=== PATIENT | male | born 1985 | race Two or more races ===

== ENCOUNTER 2024-09-11 22:49 | Emergency (ER) | payer MEDICAID, OTHER ==
[~2024-09-11] VITALS: Ht 175.3 cm; Wt 89.8 kg
--- NOTE | 2024-09-11 23:12 | ED.PDOC ---
GI ASSESSMENT HPI Comments 39-year-old Male who came to ER for rectal pain. Patient states he has been constipated for the past few days. Has been taking a laxative, but offered no relief. Patient decided to do manual rectal extraction earlier, however he started having rectal bleeding which prompted him to come to the ER patient does not currently have an active rectal bleed. Vital signs were stable on arrival. Chief Complaint: Rectal pain Time Seen by MD: 23:11 Reviewed Notes: Nurses Notes Allergies: Coded Allergies: NO KNOWN ALLERGIES (Unverified , 09/11/24) Information Source: Patient Mode of Arrival: Ambulatory Timing: Days Duration: Since onset Prehospital treatment: None Quality: Aching Vomitus: None Stool: Impaction Severity: Moderate Recent: None Recent Hx of: None Pain Location: Other (Rectal pain) Modifying Factors: Nothing Associated sign and symptoms: Blood in Stool, Other (Rectal bleeding/rectal pain) Past Medical History PAST MEDICAL HISTORY: Denies Surgical History: Denies all surgeries Family History Family History: Reviewed,noncontributory to illness Social History Smoker: Non-Smoker Alcohol: Denies ETOH Use Drugs: Denies Drug Use Lives In: Home Constitutional: denies: chills, diaphoresis, fatigue, fever, malaise, sweats, weakness, others EENTM: denies: blurred vision, double vision, ear bleeding, ear discharge, ear drainage, ear pain, ear ringing, eye pain, eye redness, hearing loss, mouth pain, mouth swelling, nasal discharge, nose bleeding, nose congestion, nose p ain, photophobia, tearing, throat pain, throat swelling, voice changes, others Respiratory: denies: cough, hemoptysis, orthopnea, SOB at rest, shortness of breath, SOB with excertion, stridor, wheezing, others Cardiovascular: denies: chest pain, dizzy spells, diaphoresis, Dyspnea on exertion, edema, irregular heart beat, left arm pain, lightheadedness, palpitations, PND, syncope, others Gastrointestinal: reports: constipated, rectal bleeding, rectal pain; denies: abdomen distended, abdominal pain, blood streaked bowels, diarrhea, dysphagia, difficulty swallowing, hematemesis, melena, nausea, poor appetite, poor fluid intake, vomiting, others Genitourinary: denies: burning, dysuria, flank pain, frequency, hematuria, incontinence, penile discharge, penile sore, pain, testicle pain, testicle swelling, urgency, others Neurological: denies: dizziness, fainting, headache, left sided numbness, left sided weakness, numbness, paresthesia, pre-existing deficit, right sided n umbness, right sided weakness, seizure, speech problems, tingling, tremors, weakness, others Musculoskeletal: denies: back pain, gout, joint pain, joint swelling, muscle pain, muscle stiffness, neck pain, others Integumetry: denies: bruises, change in color, change in hair/nails, dryness, laceration, lesions, lumps, rash, wounds, others Allergic/Immunocompromised: denies: Difficulty Healing, Frequent Infections, Hives, Itching, others Hematologic/Lymphatic: denies: anemia, blood clots, easy bleeding, easy bruising, swollen glands, others Endocrine: denies: excessive hunger, excessive sweating, excessive thirst, excessive urination, flushing, intolerance to cold, intolerance to heat, unexplained weight gain, unexplained weight loss, others Psychiatric: denies: anxiety, bipolar disorder, depression, hopeless, panic disorder, schizophrenia, sleepless, suicidal, others Physical Exam General Appearance: Moderate Distress ([id number] distress due to constipation related discomfort concerns), Normal HEENT: Normal ENT Inspection, Pharynx Normal, TMs Normal Neck: Full Range of Motion, Non-Tender, Normal, Normal Inspection Respiratory: Chest Non-Tender, Lungs Clear, No Accessory Muscle Use, No Respiratory Distress, Normal Breath Sounds Cardiovascular: No Edema, No JVD, No Murmur, No Gallop, Normal Peripheral Pulses, Regular Rate/Rhythm Breast Exam: Deferred Gastrointestinal: No Organomegaly, Non Tender, No Pulsatile Mass, Normal Bowel Sounds, Soft Genitalia: Deferred Pelvic: Deferred Rectal: Deferred Extremities: No calf tenderness, Normal capillary refill, Normal inspection, Normal range of motion, Non-tender, No pedal edema Musculoskeletal : Apperance: Normal Neurologic: Alert, No Motor Deficits, Normal Affect, Normal Mood, No Sensory Deficits Cerebellar Function: Normal Reflexes: Normal Skin: Dry, Normal Color, Warm Lymphatic: No Adenopathy Was a procedure done? Was a procedure done?: No GI differential Dx Differential Diagnosis: Constipation X-Ray, Labs, Meds, VS Vital Signs Date Time Temp Pulse Resp B/P (MAP) Pulse Ox O2 Delivery O2 Flow Rate FiO2 09/12/24 00:30 104 19 98 Room Air 09/12/24 00:30 98.2 104 19 112/69 (83) 98 98.2 09/11/24 23:04 98.9 111 20 143/85 (104) 98 Current Medications Medications (Trade) Dose Ordered Sig/Jocelynn Route Start Time Stop Time Status Last Admin Polyethylene Glycol/ Electrolytes (Golytely) 1 kit ONCE ONCE PO 09/11/24 23:15 09/11/24 23:16 DC 09/12/24 00:29 Acetaminophen (Tylenol Tablet) 1,000 mg ONCE ONCE PO 09/12/24 02:15 09/12/24 02:16 DC 09/12/24 02:19 X-Ray, Labs, Meds, VS Comment Patient was given a course of GoLYTELY and at time of this note, and not passed copious stool. Patient care will be passed to Dr. Cummings for any additional intervention that may be required. Time of 1ST Reevaluation: 02:24 Reevaluation 1ST: Improved Consultation: PCP Patient Education/Counseling: Diagnosis, Treatment Family Education/Counseling: Diagnosis, Treatment, No Family Present Departure 1 Departure Time of Disposition: 02:25 Impression: Primary Impression: Constipation Disposition: HOME / SELF CARE / HOMELESS Condition: Stable Additional Instructions: Advised patient utilize medication as directed for the next few days until a healthy bowel stool pattern is establish. Patient needs to increase hydration as well as increasing fiber in his diet. e-Prescriptions Docusate Sodium (Colace) 100 Mg Cap 1 CAP PO BID, #20 CAP Prov: CHICO PARMAR PAC 09/12/24 Lactulose (Lactulose) 10 Gm/15 Ml Radha 10 GM PO Q8HP PRN, #200 ML Prov: CHICO PARMAR PAC 09/12/24 Discharged With: Self, Friend Critical Care Note Critical Care Time?: No Stability Stability form required: No Heart Score Heart Score: Heart Score Response (Comments) Value History N/A 0 EKG N/A 0 Age N/A 0 Risk Factors N/A 0 Troponin N/A 0 Total 0 I personally scribed for CHICO PARMAR PAC ([email or web address]) on 09/11/24 at 23:12. Electronically submitted by Carlos Manuel Cuevas ([facility]). CHICO PARMAR [facility] Sep 11, 2024 23:12
[2024-09-12] MEDS: GOLYTELY 4L KIT PO ONE (00:29)
[2024-09-12 00:30] VITALS: TEMP 98.2
[2024-09-12] MEDS: ACETAMINOPHEN 325 MG TAB PO ONE (02:19)
[2024-09-12] MEDS ORDERED: DOCU-94 PO (02:27)
[2024-09-12] MEDS ORDERED: LACT10SO3 PO (02:27)
[2024-09-12] MEDS ORDERED: POLY335015 PO (05:46)
[2024-09-12 05:59] VITALS: BP 128/70; PULSE 109; RESP 19; O2SAT 97
== END 2024-09-12 05:59 | disposition home or self-care (01) ==
LOC: ER 22:49
DX: K59.00 Constipation, unspecified (principal); K62.5 Hemorrhage of anus and rectum